=== PATIENT | male | born 1970 | race Caucasian/White ===

== ENCOUNTER 2020-01-18 10:15 | Emergency (ER) | payer BC ==
[2020-01-18] MEDS ORDERED: Ketorolac 30 MG/ML SDV IM ONE (10:47)
[2020-01-18] MEDS ORDERED: HYDROmorphone 1 MG/ML Syringe IM ONE (12:03)
[2020-01-18] MEDS ORDERED: Ondansetron 4 MG Tab.DIS PO ONE (12:04)
--- NOTE | 2020-01-18 13:28 | EDM.PDOC ---
Scribed by Viridiana Brand 01/18/20 1100 for Delon Navarro MD ED HPI GENERAL MEDICAL PROBLEM - General Chief Complaint: Back Pain or Injury Stated Complaint: SEVERE BACK PAIN Time Seen by Provider: 01/18/20 10:23 Source of Information: Reports: Patient, RN, RN Notes Reviewed History Limitations: Reports: No Limitations - History of Present Illness INITIAL COMMENTS - FREE TEXT/NARRATIVE: Patient presents to ER via POV with severe low back pain. It started yesterday and suddenly got worse 20 minutes ago. History of chronic low back pain. Pt c/o severe spasms in the left lower thoracic paraspinal area. Denies flank pain, dysuria, or hematuria. Denies fever, chills, N/V, or change in bowel habits. Denies any injury or any known cause. Onset: Gradual Onset Date: 01/17/20 Duration: Constant, Getting Worse Location: Reports: Back Quality: Reports: Ache, Other (Spasms) Severity: Severe Improves with: Reports: None Worsens with: Reports: Movement Associated Symptoms: Reports: No Other Symptoms Middle Back Pain Score (Numeric/FACES): 10 - Related Data Allergies Allergy/AdvReac Type Severity Reaction Status Date / Time No Known Allergies Allergy Verified 01/18/20 10:29 Home Meds: Home Meds Carbidopa/Levodopa [Carbidopa-Levodopa 25-100 Tab] 1 tab PO QID 01/18/20 [ History] Past Medical History Musculoskeletal History: Reports: Back Pain, Chronic Neurological History: Reports: Parkinson's Social & Family History - Family History Family Medical History: Noncontributory - Tobacco Use Smoking Status *Q: Never Smoker - Living Situation & Occupation Living situation: Reports: , with Spouse Occupation: Employed ED ROS GENERAL - Review of Systems Review Of Systems: Comprehensive ROS is negative, except as noted in HPI. ED EXAM,LOWER BACK PAIN/INJURY - Physical Exam Exam: See Below Exam Limited By: No Limitations General Appearance: Alert, WD/WN, Anxious, Mild Distress (due to pain in back) Eye Exam: Bilateral Eye: Normal Inspection Throat/Mouth: Normal Inspection, Normal Lips, Normal Voice, No Airway Compromise Head: Atraumatic, Normocephalic Neck: Normal Inspection, Supple, Non-Tender, Full Range of Motion Respiratory/Chest: No Respiratory Distress, Lungs Clear, Normal Breath Sounds, No Accessory Muscle Use, Decreased Breath Sounds, Other (Mild tenderness to left lower ribs, no visible swelling, bruising, no palpable crepitus or deformity) Cardiovascular: Normal Peripheral Pulses, Regular Rate, Rhythm, No Edema, No Gallop, No JVD, No Murmur, No Rub GI/Abdominal: Normal Bowel Sounds, Soft, Non-Tender, No Organomegaly, No Distention, No Abnormal Bruit, No Mass Back Exam: Normal Inspection Extremities: Normal Inspection, Normal Range of Motion, Non-Tender, No Pedal Edema, Normal Capillary Refill Neurological: Alert, Normal Mood/Affect, Normal Dorsiflexion, CN II-XII Intact, Normal Plantar Flexion, Normal Gait, Normal Reflexes, No Motor/Sensory Deficits , Oriented x 3 Skin Exam: Warm, Dry, Intact, Normal Color, No Rash Course - Vital Signs Last Recorded V/S: Last Vital Signs Temp 98 F 01/18/20 10:23 Pulse 78 01/18/20 10:23 Resp 20 01/18/20 10:23 BP 123/79 01/18/20 10:23 Pulse Ox 98 01/18/20 10:23 - Orders/Labs/Meds Orders: Active Orders 24 hr Category Date Time Status Ribs 2V wo Chest Lt [CR] Stat Exams 01/18/20 12:52 Ordered Thoracic Spine 2V [CR] Stat Exams 01/18/20 12:52 Ordered Labs: Laboratory Tests 01/18/20 Range/Units 11:37 Urine Color Yellow (YELLOW) Urine Appearance Clear (CLEAR) Urine pH 7.0 (5.0-9.0) Ur Specific [place] 1.020 (1.005-1.030) Urine Protein Negative (NEGATIVE) Urine Glucose (UA) Negative (NEGATIVE) Urine Ketones Negative (NEGATIVE) Urine Occult Blood Negative (NEGATIVE) Urine Nitrite Negative (NEGATIVE) Urine Bilirubin Negative (NEGATIVE) Urine Urobilinogen 0.2 (0.2-1.0) mg/dL Ur Leukocyte Esterase Negative (NEGATIVE) Meds: Medications Discontinued Medications Generic Name Dose Route Start Last Admin Trade Name Freq PRN Reason Stop Dose Admin Diazepam 10 mg 01/18/20 10:46 01/18/20 10:55 Valium IM 01/18/20 10:47 10 mg ONETIME ONE Administration Hydromorphone HCl 1 mg 01/18/20 12:03 01/18/20 12:33 Dilaudid IM 01/18/20 12:04 1 mg ONETIME ONE Administration Ketorolac Tromethamine 60 mg 01/18/20 10:47 01/18/20 10:56 Toradol IM 01/18/20 10:48 60 mg ONETIME ONE Administration Ondansetron HCl 4 mg 01/18/20 12:04 01/18/20 12:34 Zofran Odt PO 01/18/20 12:05 4 mg ONETIME ONE Administration - Radiology Interpretation Free Text/Narrative:: XR T-spine: no compressions, no acute findings. XR Left Ribs: no fractures, see Rad. report. Departure - Departure Time of Disposition: 13:25 Disposition: Home, Self-Care 01 Condition: Fair Clinical Impression: Acute thoracic back pain Qualifiers: Back pain laterality: left Qualified Code(s): M54.6 - Pain in thoracic spine - Discharge Information *PRESCRIPTION DRUG MONITORING PROGRAM REVIEWED*: Not Applicable *COPY OF PRESCRIPTION DRUG MONITORING REPORT IN PATIENT CARL: Not Applicable Instructions: Acute Back Pain, Adult, Muscle Cramps and Spasms, [id number] Forms: ED Department Discharge Additional Instructions: Rx: Hydrocodone APAP 5mg/325mg *Do not drive while under the influence of this medication. Rx: Cyclobenzaprine 10mg *Do not drive while under the influence of this medication. Rx: Naprosyn 500mg *Take with food/meals. Follow up in clinic if not improving in 2 to 3 days. Sepsis Event Note - Focused Exam Vital Signs: Vital Signs Temp Pulse Resp BP Pulse Ox 01/18/20 10:23 98 F 78 20 123/79 98 Date Exam was Performed: 01/18/20 Time Exam was Performed: 13:24 - My Orders Last 24 Hours: My Active Orders 01/18/20 12:52 Ribs 2V wo Chest Lt [CR] Stat Thoracic Spine 2V [CR] Stat - Assessment/Plan Last 24 Hours: My Active Orders 01/18/20 12:52 Ribs 2V wo Chest Lt [CR] Stat Thoracic Spine 2V [CR] Stat I have read and agree with the documentation that has been completed regarding this visit. By signing this record, I attest that the documentation was completed in my physical presence and is an accurate record of the encounter.
== END 2020-01-18 13:33 | disposition home or self-care (01) ==
LOC: DL.ED 10:15
DX: M54.6 Pain in thoracic spine (principal); M54.5 Low back pain; G20 Parkinson's disease; Z79.899 Other long term (current) drug therapy
CPT/HCPCS: 71100; 72070; 81003; 96372; 96374; 99283; A9270; J1170; J1885; J3360

== ENCOUNTER 2022-09-18 18:57 | Emergency (ER) | payer OTHER ==
[2022-09-18] MEDS ORDERED: Sodium Chloride 0.9% 1,000 ML IV ONE ×3 (19:23→19:39)
[2022-09-18] MEDS ORDERED: Piperacillin/Tazobactam 4.5 GM in Sodium Chloride 0.9% 100 ML IV ONE (19:25)
[2022-09-18] MEDS ORDERED: Levofloxacin/Dextrose 5%-Water 750 MG in Premix Bag 1 BAG IV ONE (19:25)
[2022-09-18 19:46] LABS: ANION GAP 13.2 mEq/L (7-13)
[2022-09-18] MEDS ORDERED: Piperacillin/Tazobactam 4.5 GM Vial ONE (19:49)
[2022-09-18] MEDS ORDERED: Sodium Chloride 0.9% 100 ML ONE (19:51)
[2022-09-18] MEDS ORDERED: Magnesium Sulfate/Water 2 GM in Premix Bag 1 BAG IV ONE (19:58)
[2022-09-18] MEDS ORDERED: Acetaminophen 325 MG Tab PO ONE (20:05)
[2022-09-18] MEDS ORDERED: Norepinephrine 4 MG in Dextrose 5% in Water 246 ML IV SCH ×2 (20:30)
[2022-09-18 20:51] LABS: CORONAVIRUS COVID-19 NAA NEGATIVE (NEGATIVE)
[2022-09-18] MEDS ORDERED: Ondansetron 4 MG/2 ML SDV IVPUSH ONE (21:33)
== END 2022-09-18 22:05 ==
LOC: DL.ED 18:57
DX: A41.9 Sepsis, unspecified organism (principal); N39.0 Urinary tract infection, site not specified; G20 Parkinson's disease; Z79.899 Other long term (current) drug therapy; Z87.891 Personal history of nicotine dependence; Z20.822 Contact with and (suspected) exposure to COVID-19
CPT/HCPCS: 0240U; 36415; 51702; 74176; 80053; 81001; 82150; 83605; 83690; 83735; 85025; 87040; 87086; 87088; 87186; 93005; 96365; 96367; 96368; 99285; A9270; J1956; J2543; J3475; J7030

== ENCOUNTER 2025-04-03 19:44 | Emergency (ER) | payer BC, OTHER ==
[2025-04-03 20:35] LABS: APPEARANCE,URINE CLOUDY (CLEAR); BILIRUBIN,URINE NEGATIVE (NEGATIVE); COLOR,URINE YELLOW (YELLOW); GLUCOSE,URINE NEGATIVE (NEGATIVE); KETONES,URINE NEGATIVE (NEGATIVE); OCCULT BLOOD,URINE LARGE (NEGATIVE); PROTEIN,URINE NEGATIVE (NEGATIVE)
[2025-04-03 20:36] LABS: LEUKOCYTE ESTERASE,URINE MODERATE (NEGATIVE); NITRITE,URINE NEGATIVE (NEGATIVE); UROBILINOGEN,URINE 0.2 mg/dL (0.2-1.0)
[2025-04-03 20:40] LABS: BASOPHILS PERCENT AUTO 0.2 % (0.0-1.0); EOSINOPHILS PERCENT AUTO 2.5 % (1.0-3.0); HEMATOCRIT 42.3 % (40.0-54.0); HEMOGLOBIN 14.1 g/dL (14.0-18.0); LYMPHOCYTES PERCENT AUTO 29.9 % (20.5-50.1); MEAN CORPUSCULAR HEMOGLOBIN 30.7 pg (27.0-34.0); MEAN CORPUSCULAR HGB CONC 33.3 g/dL (33.0-35.0); MEAN CORPUSCULAR VOLUME 92.2 fL (80-100); MONOCYTES PERCENT AUTO 13.6 % (2-8); NEUTROPHILS PERCENT AUTO 53.8 % (42.2-75.2); PLATELET COUNT,PLT 298 10^3/uL (150-450); RED BLOOD CELL COUNT 4.59 10^6/uL (4.6-6.2); WHITE BLOOD CELL COUNT,WBC 9.3 10^3/uL (5.0-10.0)
[2025-04-03 20:44] LABS: BACTERIA,URINE FEW /HPF (0-FEW/HPF); EPITHELIAL CELLS,URINE FEW /HPF (NOT SEEN); RBC,URINE SEMI-PACKED /HPF (0-5); WBC,URINE 20-30 /HPF (0-5/HPF)
[2025-04-03 20:45] LABS: A/G RATIO 1.2; ALANINE AMINOTRANSFERASE,ALT 37 U/L (16-63); ALKALINE PHOSPHATASE 66 U/L (46-116); ANION GAP 10.3 mEq/L (7-13); ASPARTATE AMNIOTRANSFERASE,AST 19 U/L (15-37); BILIRUBIN TOTAL 0.5 mg/dL (0.2-1.0); BLOOD UREA NITROGEN,BUN 20 mg/dL (7-18); BUN/CREATININE RATIO 14.8 (No establ ref range); CALCIUM 9.2 mg/dL (8.5-10.1); CARBON DIOXIDE,CO2 30 mmol/L (21-32); CHLORIDE,CL 103 mmol/L (98-107); CREATININE 1.35 mg/dL (0.70-1.30); ESTIMATED GFR 63 mL/min (>=60); GLUCOSE RANDOM 104 mg/dL (70-99); POTASSIUM,K 4.3 mmol/L (3.5-5.1); PROTEIN TOTAL,TP 7.4 g/dL (6.4-8.2); SODIUM,NA 139 mmol/L (136-145)
[2025-04-03] MEDS: Take Home: Sulfamethoxazole/Trimethoprim 800-160 MG Tab, 6 Tab Pack PO ONE (20:59)
== END 2025-04-03 21:04 | disposition home or self-care (01) ==
LOC: DL.ED 19:44
DX: N39.0 Urinary tract infection, site not specified (principal); Z79.899 Other long term (current) drug therapy
CPT/HCPCS: 36415; 80053; 81001; 85025; 87086; 99283; A9270

== ENCOUNTER 2025-09-28 19:52 | Emergency (ER) | payer BC ==
[2025-09-28] MEDS ORDERED: Sodium Chloride 0.9% 10 ML Syringe FLUSH PRN (20:18)
[2025-09-28] MEDS: fentaNYL 100 MCG/2 ML SDV IVPUSH ONE (20:28)
[2025-09-28] MEDS ORDERED: Midazolam 1 MG/ML 2 ML SDV IVPUSH ONE (20:44)
[2025-09-28 21:05] LABS: APPEARANCE,URINE CLEAR (CLEAR); GLUCOSE,URINE NEGATIVE (NEGATIVE); OCCULT BLOOD,URINE NEGATIVE (NEGATIVE)
== END 2025-09-28 22:14 | disposition home or self-care (01) ==
LOC: DL.ED 19:52
DX: N41.9 Inflammatory disease of prostate, unspecified (principal); Z86.16 Personal history of COVID-19
CPT/HCPCS: 76870; 81003; 96374; 99284; A9270; C1758; J3010